=== PATIENT | male | born 1960 | race Caucasian/White ===

== ENCOUNTER 2017-11-02 15:20 | Emergency (ER) | payer OTHER, MEDICARE ==
[~2017-11-02] VITALS: Ht 167.6 cm; Wt 114.3 kg
[2017-11-02] MEDS ORDERED: TIMOLOL MAL 0.5% OPTH(EYE) SOL 5ML RIGHTEYE ONE (17:45)
[2017-11-02 17:48] LABS: Basophils # (auto) 0 uL; Basophils % (auto) 0.4 % (0.0-2.0); Eosinophils # (auto) 0.3 uL; Eosinophils % (auto) 3.8 % (0.0-7.0); Hematocrit 40.9 % (41.0-53.0); Hemoglobin 13.8 g/dL (13.5-17.5); Lymphocytes # (auto) 1.7 uL; Lymphocytes % (auto) 19.4 % (10.0-50.0); Mean Corpuscular Hgb Conc. 33.7 g/dL (32.0-36.0); Mean Corpuscular Volume 91.9 fL (80.0-100.0); Monocytes # (auto) 0.7 uL; Monocytes % (auto) 8.7 % (0.0-12.0); Neutrophils # (auto) 5.8 uL; Neutrophils % (auto) 67.7 % (37.0-80.0); Nucleated Red Blood Cells % 0.1 %; Platelet Count (auto) 220 10^3/uL (140-450); Red Blood Cells 4.45 10^6/uL (4.5-5.90); Red Cell Distribution Width 14.4 % (11.8-14.3); White Blood Cell 8.5 10^3/uL (4.4-10.8)
[2017-11-02 17:53] VITALS: BP 120/71
[2017-11-02 18:04] LABS: Albumin 3.5 g/dL (3.4-5.0); BUN/Creatinine Ratio 12.5; Bilirubin, Total 0.6 mg/dL (0.2-1.0); Calcium 8.1 mg/dL (8.5-10.1); Potassium 3.8 mmol/L (3.5-5.1); Total Protein 7.3 g/dL (6.4-8.2)
[2017-11-02 18:05] LABS: INR 1.97 (0.9-1.15); Partial Thromboplastin Time 37.2 sec (22.64-33.71); Prothrombin Time 21.6 sec (9.37-12.3)
== END 2017-11-02 18:34 | disposition home or self-care (01) ==
LOC: ER 15:29
DX: H40.9 Unspecified glaucoma (principal)
CPT/HCPCS: 36415; 70480; 80053; 85025; 85610; 85730